=== PATIENT | female | born 1930 | race Caucasian/White ===

== ENCOUNTER 2019-01-20 13:26 | Inpatient (IN) | payer MEDICARE, OTHER ==
[2019-01-20] MEDS ORDERED: Tranexamic Acid 1,000 MG/10 ML VIAL ONE ×2 (15:41→17:25)
[2019-01-20 16:06] LABS: Hemoglobin 4.5 g/dL (12.0-16.0)
[2019-01-20] MEDS ORDERED: Pantoprazole 40 MG VIAL ONE (16:10)
[2019-01-20] MEDS ORDERED: Ondansetron ODT 4 MG TAB PO PRN (16:41)
[2019-01-20] MEDS ORDERED: Ondansetron PF 4 MG/2 ML Vial IVP PRN (16:41)
[2019-01-20] MEDS ORDERED: Labetalol HCl 100 MG/20 ML VIAL SLOW IVP PRN (16:55)
[2019-01-20] MEDS ORDERED: hydrALAZINE 20 MG/ML VIAL SLOW IVP PRN (16:55)
[2019-01-20] MEDS ORDERED: diphenhydrAMINE 25 MG CAP PO PRN (16:55)
--- NOTE | 2019-01-20 17:15 | RAD ---
RADIOGRAPH CHEST 1 VIEW: DATE: 01/20/2019 HISTORY: 88-year-old female with generalized weakness. FINDINGS: There are no airspace densities, pulmonary edema, pneumothorax, or cardiomegaly. The lateral costophr enic angles are sharp. Diffuse prominent interstitial markings which appear chronic. IMPRESSION: 1. No acute cardiopulmonary findings. 2. Chronic diffuse interstitial changes.
[2019-01-20] MEDS ORDERED: Potassium Chloride 20 MEQ TAB PO SCH (17:45)
--- NOTE | 2019-01-20 19:18 | HP ---
CHIEF COMPLAINT: 3-day history of diarrhea, black stool, and weakness. HISTORY OF PRESENT ILLNESS: Ms. Trujillo is a very pleasant 88-year-old female with no significant past medical history, who presented to the emergency department today with the above complaints. She states that on Saturday, approximately 3 days prior to her arrival, she began having some diarrhea, and did notice that her stools were quite black. She takes an [id number]-lnaptln iron supplement from time to time and had been taking this, and so believed that her black stools were secondary to her iron supplementation. She continued to feel worse with some progressive weakness, and so presented to the emergency department today for further treatment. The patient denies any chest pain or shortness of breath. She has had no dizziness. She has had no syncope. The patient lives in [place] and so presented to the [place] ER initially. Hemoglobin on arrival was noted to be 5. Her hematocrit was 13.3%. She was transferred to our facility for higher level of care. On arrival to our facility, the patient's blood pressures have been stable. She has been mildly tachycardic in the 90s to 100s. Repeat lab work showed hemoglobin of 4.5. Her EKG showed sinus tachycardia. Her other lab work was largely unremarkable aside from a mildly low potassium of 3.3. Hospitalist Service has been consulted for admission and further treatment. REVIEW OF SYSTEMS: 12-point review of systems performed and is negative except that stated above. As mentioned, the patient has denied any specific cardiac symptoms. She has had no recent illnesses, fever, or chills. She has been in her usual state of health up until 3 days ago. ALLERGIES: THE PATIENT REPORTS SOME TYPE OF REACTION TO TYLENOL, ALTHOUGH SHE CANNOT RECALL EXACTLY WHAT THAT WAS. HOME MEDICATIONS: Levothyroxine 88 mcg daily. PAST MEDICAL HISTORY: Hypothyroidism. Her PCP is Dr. Patel. PAST SURGICAL HISTORY: The patient reports no surgical histories. She has never had a colonoscopy. She has never been hospitalized for any reason. FAMILY HISTORY: Negative for heart disease, stroke, or diabetes. She states that her parents lived well into their 90s. CODE STATUS: Full code. This was discussed with the patient and her daughter who is at the bedside. SOCIAL HISTORY: The patient is a nonsmoker and nondrinker. There is no illicit drug use. She lives independently in [place] and is a . She has 3 grown living children. She performs all of her home duties and all of her own ADLs. The patient is very functional for her age. PHYSICAL EXAMINATION: VITAL SIGNS: Blood pressure is 120/57, pulse is 94, respirations 18, O2 saturation is 95% on room air. GENERAL: The patient is an elderly female who does appear younger than her stated age, resting comfortably in bed in the ER, in no acute distress. HEENT: Head is atraumatic and normocephalic. Mucous membranes are moist. Positive for conjunctival pallor. NECK: Trachea is midline. No lymphadenopathy. CV: S1 and S2. Mildly tachycardic. Regular rhythm. LUNGS: Regular respiratory rate and pattern. Clear to auscultation bilaterally. ABDOMEN: Positive bowel sounds. Soft, nontender. EXTREMITIES: No edema. SKIN: Warm and dry. LABORATORY DATA: White blood cell count 8, RBC 1.67, hemoglobin 4.5, hematocrit 13.3%, platelets 241. Sodium 141, potassium 3.3, chloride 112, carbon dioxide 19, anion gap 13, BUN is 26, creatinine 0.79, calcium is 8.4, albumin is 3.7. ASSESSMENT: 1. Anemia, hemoglobin 4.5 at presentation, secondary to upper GI bleed/melena. 2. Mild hypokalemia. 3. Hypothyroidism. PLAN: The patient will be admitted to the IMCU for close monitoring. The patient is currently receiving 2 units of PRBC, we will continue to transfuse to keep hemoglobin above 7. Clear liquid diet for now, and n.p.o. after midnight. We will consult GI. The patient has been given 80 mg of IV Protonix in the ER, and I will continue Protonix drip. Further recommendations based on hospital course. Job ID: [id number] [facility]
[2019-01-20 20:21] LABS: Hemoglobin 6.1 g/dL (12.0-16.0)
[2019-01-20 22:51] VITALS: BMI 22.6
[2019-01-21] MEDS: Pantoprazole 80 MG in Sodium Chloride 0.9% 100 ML IVP SCH ×2 (03:15→18:28)
[2019-01-21] MEDS: Levothyroxine Sodium 88 MCG TAB PO SCH (05:56)
[2019-01-21 06:28] LABS: #Eosinphils 0.1 thou/uL (0.0-0.7); #Lymphocytes 1.7 thou/uL (1.20-3.40); #Neutrophils 6.6 thou/uL (1.40-6.50); %Basophils 0.5 % (0.0-1.0); %Eosinophils 0.5 % (0.0-10.0); %Lymphocytes 18.4 % (21.0-51.0); %Monocytes 10.6 % (0.0-10.0); Hemoglobin 7.6 g/dL (12.0-16.0); Mean Corpuscular HGB CONC 34.7 g/dL (32.0-36.0); Mean Corpuscular Hemoglobin 31.3 pg (27.0-31.0); Mean Corpuscular Volume 90.4 fL (78.0-98.0); Mean Platelet Volume 7.9 fL (7.4-10.4); Platelet Count 231 thou/uL (130-400); RBC Distribution Width 14.1 % (11.5-14.5); Red Blood Cell (RBC) Count 2.41 mill/uL (4.20-5.40); White Blood Cell (WBC) Count 9.4 thou/uL (4.8-10.8)
[2019-01-21 06:52] LABS: ALT (SGPT) 15 U/L (8-55); AST (SGOT) 24 U/L (5-34); Albumin 3.3 g/dL (3.4-4.8); Alkaline Phosphatase 48 U/L (40-150); Anion Gap 10 mmol/L (10-20); BUN (Urea Nitrogen) 17 mg/dL (9.8-20.1); Bilirubin, Total 0.9 mg/dL (0.2-1.2); Calc. Creatinine Clearance 66 mL/min (70-130); Calcium 7.9 mg/dL (7.8-10.44); Carbon Dioxide 18 mmol/L (23-31); Chloride 114 mmol/L (98-107); Estimated GFR-MDRD 86; Globulin 1.9 g/dL (2.4-3.5); Glucose 100 mg/dL (83-110); Potassium 3.5 mmol/L (3.5-5.1); Protein, Total 5.2 g/dL (6.0-8.3); Sodium 138 mmol/L (136-145)
--- NOTE | 2019-01-21 07:43 | PDOC.HOSPP ---
- Subjective Encounter Date: 01/21/19 Encounter Time: 07:41 Subjective: alert, bright. feels well now. still having melena to maroon stools - Objective Vital Signs & Weight: Vital Signs (12 hours) Temp Pulse Ox 01/21/19 07:23 98.3 F 01/21/19 03:34 99.2 F 01/21/19 02:27 98 01/21/19 00:00 97.6 F 01/20/19 20:04 98.3 F Weight Weight 148 lb 8 oz Most Recent Monitor Data Heart Rate from ECG 82 NIBP 118/48 NIBP BP-Mean 71 Respiration from ECG 18 SpO2 98 I&O: 01/20/19 01/21/19 01/22/19 06:59 06:59 06:59 Intake Total 470 Balance 470 Result Diagrams: 01/21/19 05:49 01/21/19 05:49 Hospitalist ROS - Medication Medications: Active Medications Generic Name Dose Route Start Last Admin Trade Name Freq PRN Reason Stop Dose Admin Pantoprazole Sodium 80 mg/ 100 mls @ 10 mls/hr 01/20/19 17:00 01/21/19 03:15 Sodium Chloride IVP 100 mls INF SAMIR Administration Levothyroxine Sodium 88 mcg 01/21/19 06:00 01/21/19 05:56 Synthroid PO Not Given 0600 SAMIR - Exam General Appearance: awake alert Neck: no JVD Heart: RRR, no murmur Respiratory: CTAB Gastrointestinal: soft, non-tender, normal bowel sounds Extremities: no edema Hosp A/P (1) Anemia due to blood loss, acute Code(s): D62 - ACUTE POSTHEMORRHAGIC ANEMIA Status: Acute (2) GI hemorrhage Code(s): K92.2 - GASTROINTESTINAL HEMORRHAGE, UNSPECIFIED Status: Acute Qualifiers: GI bleed type/associated pathology: unspecified gastrointestinal hemorrhage type Qualified Code(s): K92.2 - Gastrointestinal hemorrhage, unspecified (3) Hypothyroid Code(s): E03.9 - HYPOTHYROIDISM, UNSPECIFIED Status: Acute Qualifiers: Hypothyroidism type: unspecified Qualified Code(s): E03.9 - Hypothyroidism , unspecified (4) Hypokalemia Code(s): E87.6 - HYPOKALEMIA Status: Acute - Plan iv protonix serial H&H, transfuse for Hg < 7 GI consult
[2019-01-21] MEDS ORDERED: PROPOFOL 200 MG/20 ML VIAL ONE (12:26)
[2019-01-21] MEDS ORDERED: Lidocaine 1% PF 5 ML VIAL ONE (12:26)
[2019-01-21 13:25] LABS: Hemoglobin 6.8 g/dL (12.0-16.0); Platelet Count 216 thou/uL (130-400)
[2019-01-21] MEDS: GoLYTELY 4,000 ml Bottle PO SCH (17:36)
[2019-01-21 18:27] LABS: Hemoglobin 6.8 g/dL (12.0-16.0); Platelet Count 208 thou/uL (130-400)
[2019-01-21 23:49] LABS: Hemoglobin 6.9 g/dL (12.0-16.0); Platelet Count 227 thou/uL (130-400)
[2019-01-22] MEDS: Pantoprazole 80 MG in Sodium Chloride 0.9% 100 ML IVP SCH (03:43)
[2019-01-22] MEDS: GoLYTELY 4,000 ml Bottle PO SCH (05:55)
[2019-01-22] MEDS: Levothyroxine Sodium 88 MCG TAB PO SCH (05:57)
[2019-01-22 06:05] LABS: Hemoglobin 6.1 g/dL (12.0-16.0); Platelet Count 198 thou/uL (130-400)
--- NOTE | 2019-01-22 07:40 | CON ---
DATE OF CONSULTATION: 01/21/2019 REASON FOR CONSULTATION: GI bleeding, severe anemia due to blood loss. HISTORY OF PRESENT ILLNESS: Ms. Alla Trujillo is a very pleasant 88-year-old female, who is very healthy lady except for history of hypothyroidism. She had seen Dr. Wallace before and she has not seen Dr. Patel in a while. She has been seeing Dr. Roach, her novelties sales representative over the years. She has had blood test done at Dr. Roach's office. The patient does take iron off and on. The patient noticed black tarry stool this past Saturday, she was having multiple stools. She had abdominal pain. No nausea, no vomiting. She had no indigestion or heartburn. No other significant problems except for this hypothyroidism. She had never been hospitalized. She does not take any aspirin or any NSAID medication. The patient progressively got weak and also lightheaded. She went to [facility] and was found to have profound anemia. The hemoglobin was as low as 5 g. The MCV is normal. It was indicative of an active blood loss. She was transferred here , and here another CBC done, which shows 4.6 g. She has been transfused. This morning, her hemoglobin is up to 7.6, hematocrit 28.8, MCV is normal at 90.4, indicating acute blood loss. The patient has no similar episodes in the past. Her bowel movements are fairly regular. She never had any rectal bleeding. She never had a colonoscopy. The patient has no other relevant symptoms. ALLERGIES: HISTORY OF INTOLERANCE TO TYLENOL. SOCIAL HISTORY: The patient does not smoke or drink alcohol. MEDICAL ILLNESS: Hypothyroidism, on Synthroid. Her regular novelties sales representative is Dr. Roach. PAST SURGICAL HISTORY: None. FAMILY HISTORY: Unremarkable. No family history of any gastric cancer, heart disease, diabetes, or stroke. MEDICATIONS AT HOME: Synthroid 88 mcg once a day. REVIEW OF SYSTEMS: A 10-point review of systems reviewed; CONSTITUTIONAL: No history of any weight loss. No fever. Her exercise tolerance is very good. HEENT: No chronic headache. No history of any dizziness. No syncope. No impaired vision or diplopia. No hearing loss. No nose bleed. No sore throat. NECK: No stiffness or pain. LUNGS: No chronic coughing, hemoptysis, or dyspnea. CARDIOVASCULAR SYSTEM: No chest pain. No dyspnea, palpitation, orthopnea, or PND. GI: No abdominal pain, nausea, or vomiting. No dysphagia or odynophagia. History of tarry stool over the last 3 days. , neuroendocrine, hematological, neuropsychiatry are unremarkable. PHYSICAL EXAMINATION: GENERAL: She is a very fragile looking thin female, appears very comfortable. She is very pleasant to talk to and is a good historian. VITAL SIGNS: Afebrile. Pulse is 82, blood pressure is 118/48. HEENT: Conjunctivae are clear. NECK: Supple. No adenitis or thyromegaly noted. CARDIOVASCULAR SYSTEM: First and second heart sounds are normal. LUNGS: Clear to auscultation. ABDOMEN: Soft. Abdomen is nontender. No organomegaly. No masses. Bowel sounds normal. EXTREMITIES: Reveal no edema. LABORATORY DATA: On admission; hemoglobin 4.5, hematocrit 13.3. After transfusion, up to 8gr hemoglobin and hematocrit ___, MCV 90.4, platelet count is 231,000, polymorphs 70, lymphocytes 18, monocytes 10. Chemistry profile shows normal lytes, BUN is 17, creatinine 0.65, glucose 100, calcium 7.9, bilirubin 0.9, AST is 24, ALT 15, her albumin is 3.3. CLINICAL IMPRESSION: 1. An 88-year-old female with acute blood loss anemia. The patient has history of black tarry stool over the last 3 days. This history is suggestive of acute upper gastrointestinal bleeding. However, her BUN is normal at 17. However, I would expect to have the BUN going up with upper gastrointestinal bleeding. 2. Hypothyroidism. 3. Gastrointestinal bleeding. 4. Anemia due to blood loss. RECOMMENDATIONS: 1. N.p.o. 2. Follow the hemoglobin and hematocrit. 3. Transfuse p.r.n. 4. Empiric PPI. 5. EGD later on today and if negative, have to consider colonoscopy. Job ID: [id number] [facility]
--- NOTE | 2019-01-22 07:48 | CON ---
DATE OF CONSULTATION: HISTORY OF PRESENT ILLNESS: Alla Trujillo is an 88-year-old female, lives in [place], assisted living. She has been blessed with good health all of her life. She was having melena on presentation and scheduled for endoscopy. She had a hemoglobin just over 4 g. PAST MEDICAL HISTORY: Positive for hypothyroidism. SOCIAL HISTORY: Drinker. FAMILY HISTORY: Father lived to . PHYSICAL EXAMINATION: GENERAL: She is in acute distress. VITAL SIGNS: Blood pressure 122/62, heart rate 82, respiratory rate 18. HEENT negative LUNGS: Clear. HEART: Regular rhythm. ABDOMEN: Without clubbing, cyanosis or edema. LABORATORY DATA: Hemoglobin less than 5 grams. Coagulation studies nl; sodium 138, potassium 3.5, chloride 114, bicarb 18, BUN 17, creatinine 0.65. IMPRESSION: 1. Likely upper gastrointestinal bleed. 2. Hypoglobulinemia. 3. Hyperchloremic acidosis likely secondary to volume infusions. Follow her electrolytes, follow her H/H. . Job ID: [id number] [facility]
--- NOTE | 2019-01-22 09:03 | PDOC.HOSPP ---
- Subjective Encounter Date: 01/22/19 Encounter Time: 09:01 Subjective: alert, no complaaints, prep for colonoscopy in progress - Objective Vital Signs & Weight: Vital Signs (12 hours) Temp Pulse Ox 01/22/19 08:00 98 01/22/19 07:31 98.0 F 01/22/19 03:54 98.8 F 01/21/19 23:38 97.7 F Weight Weight 148 lb 8 oz Most Recent Monitor Data Heart Rate from ECG 88 NIBP 96/72 NIBP BP-Mean 80 Respiration from ECG 20 SpO2 100 I&O: 01/21/19 01/22/19 01/23/19 06:59 06:59 06:59 Intake Total 470 2205 Output Total 1700 Balance 470 505 Result Diagrams: 01/22/19 05:56 01/21/19 05:49 Hospitalist ROS - Medication Medications: Active Medications Generic Name Dose Route Start Last Admin Trade Name Freq PRN Reason Stop Dose Admin Pantoprazole Sodium 80 mg/ 100 mls @ 10 mls/hr 01/20/19 17:00 01/22/19 03:43 Sodium Chloride IVP 100 mls INF SAMIR Administration Levothyroxine Sodium 88 mcg 01/21/19 06:00 01/22/19 05:57 Synthroid PO 88 mcg 0600 SAMIR Administration - Exam Neck: no JVD Heart: RRR, no murmur Respiratory: CTAB Gastrointestinal: soft, normal bowel sounds Extremities: no edema Hosp A/P (1) Anemia due to blood loss, acute Code(s): D62 - ACUTE POSTHEMORRHAGIC ANEMIA Status: Acute (2) GI hemorrhage Code(s): K92.2 - GASTROINTESTINAL HEMORRHAGE, UNSPECIFIED Status: Acute Qualifiers: GI bleed type/associated pathology: unspecified gastrointestinal hemorrhage type Qualified Code(s): K92.2 - Gastrointestinal hemorrhage, unspecified (3) Hypothyroid Code(s): E03.9 - HYPOTHYROIDISM, UNSPECIFIED Status: Acute Qualifiers: Hypothyroidism type: unspecified Qualified Code(s): E03.9 - Hypothyroidism , unspecified (4) Hypokalemia Code(s): E87.6 - HYPOKALEMIA Status: Acute - Plan iv protonix serial H&H, transfuse for Hg < 7 EGD unremarkable, colonoscopy pending
--- NOTE | 2019-01-22 09:23 | OP ---
DATE OF PROCEDURE: 01/21/2019 PROCEDURE PERFORMED: Esophagogastroduodenoscopy. PREOPERATIVE DIAGNOSES: An 88-year-old female with black tarry stool over the last 3 days with severe anemia. The patient has no abdominal pain, no nausea or vomiting. She does not take any aspirin or any NSAID medication. Underwent EGD. POSTOPERATIVE DIAGNOSES: 1. Mild mucosal friability at the GE junction. 2. Hiatal hernia. 3. Polyps in the duodenum, which appears benign and was not biopsied 4. Normal duodenum. 5. Endoscopy the stomach is completely empty. Does not have any blood or any coffee-ground material. DESCRIPTION OF PROCEDURE: The patient was placed on her left lateral position and was given sedation by Anesthesia Department. A Pentax video gastroscope under direct vision passed down the oropharynx, past the GE junction into the stomach and subsequently into the descending duodenum. The esophageal mucosa appears normal throughout. The GE junction showed no patholgy.. Retroflexion failed to show any pathology in fundus or cardia. She has hiatal hernia. The gastric body, gastric antrum, incisura angularis, no lesion seen. The duodenal bulb shows multiple tiny polyps .They appear benign. In the descending duodenum, no pathology seen. The scope was advanced back one more time into the descending duodenal system. Again, careful withdrawal shows no abnormal findings. The stomach decompressed and scope removed. RECOMMENDATIONS: 1. Clear liquid diet. 2. Prep the patient for colonoscopy tomorrow, which will be done by Dr. Reece Figueroa. This was conveyed to the patient's daughter, Elisha. Job ID: [id number] [facility]
--- NOTE | 2019-01-22 12:15 | PRG ---
DATE OF SERVICE: 01/22/2019 SUBJECTIVE: [place]. She underwent endoscopy with Dr. Headley yesterday. She had GE junction mucosal friability, polyps in the duodenum. No ulcer, no fresh blood or old blood was seen in the stomach. She is tentatively on the schedule for colonoscopy. Her hemoglobin is 6.1, so I have ordered 2 units of blood. OBJECTIVE: LUNGS: Clear. HEART: Regular rhythm. ABDOMEN: Soft. IMPRESSION: Gastrointestinal blood loss, probably subacute given that she presented with a hemoglobin of 4 g. We will continue to follow. Medically, she appears stable at this time. Job ID: [id number] [facility]
[2019-01-22 13:04] VITALS: BP 120/49
--- NOTE | 2019-01-22 19:13 | OP ---
DATE OF PROCEDURE: 01/22/2019 PROCEDURES PERFORMED: Colonoscopy with snare polypectomy and control of hemorrhage and biopsy. PREOPERATIVE DIAGNOSES: Gastrointestinal bleed and anemia of acute blood loss. DESCRIPTION OF PROCEDURE: Informed consent was obtained from the patient. She was sedated with total intravenous anesthesia. The rectal exam was performed and the colonoscope was advanced easily to the terminal ileum. The preparation quality was good. The mucosa of the terminal ileum was normal. The ileocecal valve and appendiceal orifice were clearly identified. There was red blood scattered throughout the colon. When the scope entered the ascending colon, there was a large area of adherent red blood on the wall of the colon. I initially thought this was barotrauma; however, after this was washed and suctioned, it became apparent that this was a large confluence of vascular ectasias. This extended from the ascending colon to partially into the cecum. This was circumferential about 1/2 to 3/4th of the circumference of the proximal ascending colon. There was one particular site that had continuous persistent active bleeding. This was cauterized with about a 1 cm diameter area with argon plasma coagulation with excellent control of the hemorrhage. There was no further bleeding or accumulation of blood after the site was treated. There was a large flat villous appearing polyp about 7 cm distal to the ileocecal valve and the distal ascending colon. This measures around 18 mm, however, all the margins of the polyp could not be adequately visualized in forward or retroflexed views in the right colon. This was biopsied. There was mild to moderate diverticulosis of the left colon. A 7 mm polyp was removed by snare cautery polypectomy from the distal sigmoid colon. Two polyps measuring 1 cm and 6 mm were removed from the rectum by snare cautery polypectomy. Retroflexed views in the rectum were normal. IMPRESSION: 1. 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 There was one actively persistently bleeding site that was cauterized with argon plasma coagulation in the right colon, settings at 15 and then 20 gibbs with good hemostasis confirmed. This confluence of vascular ectasias is really too extensive to cauterize completely. The bleeding in this site was stopped and further empiric cauterization of this was not performed today. 2. Large flat villous appearing polyp at 18 mm in the distal ascending colon, about 7 cm distal to the ileocecal valve. The margins of this polyp could not be fully visualized in forward or retroflexed views in the ascending colon. This was biopsied. 3. Mild to moderate left-sided diverticulosis. 4. 7 mm distal sigmoid polyp removed by hot snare. 5. Two rectal polyps measuring 1 cm and 6 mm were removed by hot snare. RECOMMENDATIONS: 1. Await histopathology. 2. Follow up in the office with Dr. Headley. If the patient has ongoing or recurrent chronic bleeding, then options would include right hemicolectomy or further argon plasma coagulation. For now, both these options I would think may have more potential morbidity than benefit and now that the actively bleeding site is controlled, I would let the clinical course determine the next step. 3. If the polyp in the ascending colon has no high grade dysplasia, then again I would consider just conservative management and rebiopsy in a year. We would have to weigh risks of more extensive polypectomy versus right hemicolectomy given her advanced age. She is in good health and active otherwise. 4. Follow trend of her hemoglobin now and follow for signs of further overt bleeding. If her hemoglobin remains stable and there is no further bleeding, then I would expect she should be able to discharge home the day after tomorrow. We will advance her diet today. Job ID: [id number]
[2019-01-23] MEDS: Levothyroxine Sodium 88 MCG TAB PO SCH (05:03)
[2019-01-23 05:51] LABS: #Eosinphils 0.2 thou/uL (0.0-0.7); #Lymphocytes 1.5 thou/uL (1.20-3.40); #Neutrophils 9.1 thou/uL (1.40-6.50); %Basophils 0.1 % (0.0-1.0); %Eosinophils 1.3 % (0.0-10.0); %Monocytes 8.7 % (0.0-10.0); %Neutrophils 76.8 % (42.0-75.0); Mean Corpuscular HGB CONC 33.5 g/dL (32.0-36.0); Mean Corpuscular Hemoglobin 30.5 pg (27.0-31.0); Mean Corpuscular Volume 90.9 fL (78.0-98.0); Mean Platelet Volume 8.2 fL (7.4-10.4); Platelet Count 184 thou/uL (130-400); RBC Distribution Width 14.2 % (11.5-14.5); Red Blood Cell (RBC) Count 2.63 mill/uL (4.20-5.40); White Blood Cell (WBC) Count 11.8 thou/uL (4.8-10.8)
[2019-01-23 11:07] VITALS: TEMP 97.6
--- NOTE | 2019-01-23 14:28 | PRG ---
DATE OF SERVICE: 01/23/2019 SUBJECTIVE: This is an 88-year-old hospitalized with GI bleeding, profound anemia. She has been transfused. She had negative EGD. Her colonoscopy revealed multiple confluent areas of malformation of the right colon and one of them was bleeding. This was cauterized by Dr. Bradford. The other right colon polyps were biopsied. She has done well overnight. She was started on clear, full liquid or regular diet today. She is tolerating diet. No abdominal pain. No nausea or vomiting. She had a stool today, and the stool is normal in color. Blood count is up to 8 and stable. PHYSICAL EXAMINATION: GENERAL: Appears comfortable. VITAL SIGNS: Stable. CARDIOVASCULAR: Lungs within normal limits. ABDOMEN: Soft. No organomegaly. No tenderness. No masses. RECOMMENDATION: The patient can be discharged home on iron supplement. She will come back to see me in 2 weeks. I did talk to Dr. Castro, who is a hospitalist on-call today. Dr. Castro will discharge the patient later on today. Job ID: [id number]
--- NOTE | 2019-01-24 03:22 | DIS ---
DATE OF ADMISSION: 01/20/2019 DATE OF DISCHARGE: 01/23/2019 REASON FOR HOSPITALIZATION: GI bleeding. SIGNIFICANT FINDINGS: The patient was found to have complex collection of blood vessels on the ascending colon, which were actively bleeding. I required electrocauterization with argon plasma, please see full operative report for details. PROCEDURES PERFORMED/TREATMENTS RENDERED: The patient received colonoscopy on 01/22/2019, please see full operative report for details. The patient was transfused packed red blood cells resulting in hemoglobin increasing to a level of 8.0 on the day of discharge. Hemoglobin as low as 4.5 on admission. CONDITION ON DISCHARGE: Stable. SPECIFIC INSTRUCTIONS FOR THE PATIENT/FAMILY: 1. The patient is recommended to return to acute care hospital immediately if there is any sign of black or red in her stool. 2. The patient is recommended to return to acute care hospital for worsening abdominal pain or any other new symptoms. 3. The patient is recommended to follow up with Gastroenterology in the outpatient clinic in the next 1 to 2 weeks. The patient is recommended to follow up with primary care physician in the next 5 to 7 days. 4. The patient is recommended to take all medications as directed, to be re-evaluated by primary care physician and Gastroenterology in the outpatient clinic. DISCHARGE MEDICATIONS: 1. Levothyroxine 88 mcg one tablet p.o. daily. 2. Ferrous sulfate 325 mg one tablet p.o. daily. HOSPITAL COURSE: Ms. Trujillo is a very pleasant 88-year-old white female who presented to the [facility] on 01/20/2019, with GI bleeding. Patient initially found to have hemoglobin as low as 4.5 and required blood transfusions, please see full record from blood bank for details. Patient seen and evaluated by Gastroenterology, please see full consultation progress notes and operative reports for details. Gastroenterology recommending colonoscopy which was performed on 01/22/2019, please see full operative report for details. The patient was found to have a complex vascular collection on the proximal ascending colon and there was active bleeding. The patient had successful argon cauterization and bleeding was controlled. The patient also with polyps that will need close monitoring per Gastroenterology in the upcoming weeks. The patient was recommended safe for discharge by Gastroenterology on 01/23/2019. The patient tolerating regular diet. The patient had a bowel movement, which did not have any black or blood in stool. The patient is breathing well on room air. The patient's vital signs are stable. The patient recommended safe for discharge with close followup in the outpatient setting. The patient recommended starting oral iron per Gastroenterology, this medication was sent to her preferred pharmacy. The patient recommended to return to acute care hospital immediately if there is any signs or symptoms including, but not limited to, red or black in stool, abdominal pain, lightheadedness, dizziness, or any other new symptoms. The patient recommended to follow up with primary care physician and Gastroenterology in the next 1 to 2 weeks. The patient recommended to continue to follow up with all other specialists as directed. Greater than 37 minutes spent coordinating care and discharge process for this patient. Job ID: [id number]
== END 2019-01-23 15:24 | disposition home or self-care (01) | DRG 378 ==
LOC: ERS 13:26 → IMCU/EMU 19:56
PROVIDERS: ADMIT Internal Medicine; ATTEND Internal Medicine
PROC: 0DJ08ZZ Inspection of Upper Intestinal Tract, Via Natural or Artificial Opening Endoscopic (ICD-10-PCS; principal; 2019-01-21)
PROC: 0W3P8ZZ Control Bleeding in Gastrointestinal Tract, Via Natural or Artificial Opening Endoscopic (ICD-10-PCS; 2019-01-22)
PROC: 0DBK8ZX Excision of Ascending Colon, Via Natural or Artificial Opening Endoscopic, Diagnostic (ICD-10-PCS; 2019-01-22)
PROC: 0DBP8ZZ Excision of Rectum, Via Natural or Artificial Opening Endoscopic (ICD-10-PCS; 2019-01-22)
PROC: 0DBN8ZZ Excision of Sigmoid Colon, Via Natural or Artificial Opening Endoscopic (ICD-10-PCS; 2019-01-22)
DX: K31.811 Angiodysplasia of stomach and duodenum with bleeding (principal); D62 Acute posthemorrhagic anemia; E87.2 Acidosis; E86.1 Hypovolemia; E03.9 Hypothyroidism, unspecified; E87.6 Hypokalemia; K44.9 Diaphragmatic hernia without obstruction or gangrene; K62.1 Rectal polyp; K63.5 Polyp of colon; K31.7 Polyp of stomach and duodenum; K57.30 Diverticulosis of large intestine without perforation or abscess without bleeding
CPT/HCPCS: 36415; 36430; 71045; 80053; 82274; 85014; 85018; 85025; 85049; 86850; 86900; 86901; 88305; 96374; 96376; C9113; J2001; J2704; J3490; P9016

== ENCOUNTER 2021-06-22 18:24 | Inpatient (IN) | payer MEDICARE, OTHER ==
[2021-06-22 18:52] LABS: #Lymphocytes 1.2 thou/uL (1.20-3.40); #Neutrophils 8.4 thou/uL (1.40-6.50); %Basophils 0.1 % (0.0-1.0); %Eosinophils 0.1 % (0.0-10.0); %Lymphocytes 11.5 % (21.0-51.0); %Monocytes 9.6 % (0.0-10.0); %Neutrophils 78.7 % (42.0-75.0); Hemoglobin 9.8 g/dL (12.0-16.0); Mean Corpuscular HGB CONC 32.3 g/dL (32.0-36.0); Mean Corpuscular Hemoglobin 32.7 pg (27.0-31.0); Mean Platelet Volume 7.3 fL (7.4-10.4); Platelet Count 423 thou/uL (130-400); RBC Distribution Width 13.1 % (11.5-14.5); Red Blood Cell (RBC) Count 2.99 mill/uL (4.20-5.40); White Blood Cell (WBC) Count 10.6 thou/uL (4.8-10.8)
[2021-06-22 19:03] LABS: Bacteria/HPF None Seen HPF (None Seen); Bilirubin Negative (Negative); Blood, Urine 1+ (Negative); Clarity Clear (Clear); Glucose, Urine (Dipstick) Normal (Negative); Ketone, Urine Negative (Negative); Leukocyte Negative Leu/uL (Negative); Nitrite Negative (Negative); Protein, Urine (Dipstick) 30 mg/dL (Neg-Trace); RBC/HPF 0-3 HPF (0-3); Specific Gravity, Urine 1.025 (1.002-1.036); Squamous Epithelial None Seen HPF (0-3); Urobilinogen Normal mg/dL (Less than 2); WBC/HPF 0-3 HPF (0-3); pH, Urine 5.5 (5.0-9.0)
[2021-06-22 19:06] LABS: INR-International Normal Ratio 1.4; Prothrombin Time 17.2 sec (12.0-14.7)
[2021-06-22 19:08] LABS: PTT 63.8 sec (22.9-36.1)
[2021-06-22] MEDS ORDERED: cefTRIAXone\\ROCEPHIN 2 GM VIAL ONE (19:30)
[2021-06-22 19:54] LABS: CKMB 8.7 ng/mL (0-6.6)
[2021-06-22 20:14] LABS: Albumin 3.1 g/dL (3.4-4.8)
[2021-06-22 20:16] LABS: Calcium 7.7 mg/dL (7.8-10.44); Potassium 3.2 mmol/L (3.5-5.1)
[2021-06-22 20:17] LABS: Globulin 2.5 g/dL (2.4-3.5); Glucose 115 mg/dL (83-110); Protein, Total 5.6 g/dL (5.8-8.1)
[2021-06-22 20:18] LABS: Anion Gap 17 mmol/L (10-20); Carbon Dioxide 20 mmol/L (23-31)
[2021-06-22 20:19] LABS: Bilirubin, Total 0.7 mg/dL (0.2-1.2)
[2021-06-22 20:20] LABS: Alkaline Phosphatase 48 U/L (40-110); Calc. Creatinine Clearance 0 mL/min (70-130)
[2021-06-22] MEDS ORDERED: Azithromycin 500 MG VIAL ONE (20:20)
[2021-06-22 20:21] LABS: BUN (Urea Nitrogen) 59 mg/dL (9.8-20.1)
[2021-06-22 20:22] LABS: AST (SGOT) 29 U/L (5-34)
[2021-06-22 20:23] LABS: ALT (SGPT) 20 U/L (8-55)
[2021-06-22 20:24] LABS: Chloride 130 mmol/L (98-107); Sodium 164 mmol/L (136-145)
[2021-06-22] MEDS ORDERED: Ondansetron PF 4 MG/2 ML Vial IVP PRN (20:48)
[2021-06-22] MEDS ORDERED: hydrALAZINE 20 MG/ML VIAL SLOW IVP PRN (20:53)
[2021-06-22] MEDS ORDERED: Dextrose 5% w/ 20 mEq KCl 1,000 ML IV SCH (21:00)
[2021-06-22] MEDS ORDERED: Pantoprazole 80 MG in Sodium Chloride 0.9% 100 ML IVPB SCH (21:00)
[2021-06-22 21:49] LABS: Hemoglobin 8.7 g/dL (12.0-16.0)
[2021-06-22] MEDS ORDERED: Potassium Phosphate 30 MMOL in Sodium Chloride 0.9% 500 ML IVPB SCH (22:00)
[2021-06-22 22:18] LABS: Anion Gap 17 mmol/L (10-20); BUN (Urea Nitrogen) 53 mg/dL (9.8-20.1); Calc. Creatinine Clearance 0 mL/min (70-130); Calcium 7.8 mg/dL (7.8-10.44); Carbon Dioxide 20 mmol/L (23-31); Chloride 129 mmol/L (98-107); Glucose 116 mg/dL (83-110); Potassium 3.1 mmol/L (3.5-5.1); Sodium 163 mmol/L (136-145)
[2021-06-22 22:30] LABS: SARS-CoV-2 NAA Rapid Test DETECTED (NotDetected)
[2021-06-23 01:18] LABS: Hemoglobin 8.6 g/dL (12.0-16.0)
[2021-06-23 01:43] LABS: Troponin I 0.246 ng/mL (< 0.028)
[2021-06-23 06:01] LABS: Troponin I 0.275 ng/mL (< 0.028)
[2021-06-23 06:03] LABS: ALT (SGPT) 25 U/L (8-55); AST (SGOT) 43 U/L (5-34); Alkaline Phosphatase 50 U/L (40-110); Anion Gap 16 mmol/L (10-20); BUN (Urea Nitrogen) 43 mg/dL (9.8-20.1); Bilirubin, Total 0.7 mg/dL (0.2-1.2); Calc. Creatinine Clearance 47 mL/min (70-130); Calcium 7.7 mg/dL (7.8-10.44); Carbon Dioxide 19 mmol/L (23-31); Chloride 132 mmol/L (98-107); Globulin 2.4 g/dL (2.4-3.5); Glucose 109 mg/dL (83-110); Potassium 3.2 mmol/L (3.5-5.1); Protein, Total 5.4 g/dL (5.8-8.1); Sodium 164 mmol/L (136-145)
[2021-06-23] MEDS: Levothyroxine Sodium 88 MCG TAB PO SCH (06:14)
[2021-06-23 06:31] LABS: Hemoglobin 8.4 g/dL (12.0-16.0); Mean Corpuscular HGB CONC 32.9 g/dL (32.0-36.0); Mean Corpuscular Hemoglobin 32.8 pg (27.0-31.0); Mean Corpuscular Volume 99.8 fL (78.0-98.0); Mean Platelet Volume 7.5 fL (7.4-10.4); Platelet Count 314 thou/uL (130-400); RBC Distribution Width 13.1 % (11.5-14.5); Red Blood Cell (RBC) Count 2.56 mill/uL (4.20-5.40); White Blood Cell (WBC) Count 9.4 thou/uL (4.8-10.8)
[2021-06-23 06:35] LABS: Magnesium 2.4 mg/dL (1.6-2.6)
[2021-06-23 08:11] LABS: Phosphorus 4.6 mg/dL (2.3-4.7)
[2021-06-23] MEDS: Dextrose 5% in Water 1,000 ML IV SCH ×3 (09:44→20:20)
[2021-06-23] MEDS ORDERED: Iopamidol 370 76% 100 ML VIAL ONE (10:28)
[2021-06-23 10:40] LABS: CRP (Inflammatory) Less than 0.50 mg/dL (= or < 0.5); Iron 22 ug/dL (50-170); Iron Binding Capacity, Total 226 mcg/dL (265-497)
[2021-06-23 10:44] LABS: Anion Gap 11 mmol/L (10-20); BUN (Urea Nitrogen) 38 mg/dL (9.8-20.1); Calc. Creatinine Clearance 49 mL/min (70-130); Calcium 7.6 mg/dL (7.8-10.44); Carbon Dioxide 25 mmol/L (23-31); Chloride 132 mmol/L (98-107); Glucose 124 mg/dL (83-110); Potassium 3.4 mmol/L (3.5-5.1); Sodium 165 mmol/L (136-145)
[2021-06-23 11:05] LABS: Band 4 % (5-11); Lymphocytes 15 % (21-51); MDiff Complete? YES; Monocytes 5 % (0-10); Neutrophil 76 % (42-75); Platelet Morphology Comment Appears Adequate; Polychromasia MODERATE = 3-4 cells (100X) (0-2/hpf)
[2021-06-23 14:02] LABS: Anion Gap 7 mmol/L (10-20); BUN (Urea Nitrogen) 35 mg/dL (9.8-20.1); Calc. Creatinine Clearance 47 mL/min (70-130); Calcium 7.4 mg/dL (7.8-10.44); Carbon Dioxide 27 mmol/L (23-31); Chloride 131 mmol/L (98-107); Glucose 162 mg/dL (83-110); Potassium 3.2 mmol/L (3.5-5.1); Sodium 162 mmol/L (136-145)
[2021-06-23] MEDS ORDERED: Potassium Bicarbonate/Cit Ac 20 MEQ TAB PO SCH (15:00)
[2021-06-23 16:53] LABS: Anion Gap 6 mmol/L (10-20); BUN (Urea Nitrogen) 31 mg/dL (9.8-20.1); Calc. Creatinine Clearance 52 mL/min (70-130); Calcium 7.6 mg/dL (7.8-10.44); Carbon Dioxide 27 mmol/L (23-31); Glucose 110 mg/dL (83-110); Potassium 3.2 mmol/L (3.5-5.1); Sodium 159 mmol/L (136-145)
[2021-06-23 16:58] LABS: Chloride 129 mmol/L (98-107)
[2021-06-23] MEDS ORDERED: Potassium Citrate 10 MEQ TAB PO SCH (17:00)
[2021-06-23] MEDS ORDERED: ALPRAZolam 0.25 MG TAB PO SCH (18:15)
[2021-06-23 20:37] LABS: Anion Gap 6 mmol/L (10-20); BUN (Urea Nitrogen) 28 mg/dL (9.8-20.1); Calc. Creatinine Clearance 53 mL/min (70-130); Calcium 7.7 mg/dL (7.8-10.44); Carbon Dioxide 28 mmol/L (23-31); Glucose 92 mg/dL (83-110); Potassium 3.2 mmol/L (3.5-5.1); Sodium 160 mmol/L (136-145)
[2021-06-23 20:40] LABS: Chloride 129 mmol/L (98-107)
[2021-06-23] MEDS: Pantoprazole 80 MG, Admixture Fee 1 EACH in Sodium Chloride 0.9% 100 ML IVPB SCH (20:59)
[2021-06-23] MEDS: cefTRIAXone\\ROCEPHIN 1 GM in Sodium Chloride 0.9% 100 ML IVPB SCH (20:59)
[2021-06-23] MEDS: Potassium Citrate 10 MEQ TAB PO SCH (20:59)
[2021-06-24] MEDS: Potassium Citrate 10 MEQ TAB PO SCH ×5 (00:28→20:17)
[2021-06-24] MEDS: Dextrose 5% in Water 1,000 ML IV SCH ×4 (03:13→18:10)
[2021-06-24 03:58] LABS: Potassium, Urine 49.2 mmol/L
[2021-06-24 06:14] LABS: Anion Gap 9 mmol/L (10-20); BUN (Urea Nitrogen) 20 mg/dL (9.8-20.1); Calc. Creatinine Clearance 56 mL/min (70-130); Calcium 7.6 mg/dL (7.8-10.44); Carbon Dioxide 21 mmol/L (23-31); Chloride 125 mmol/L (98-107); Glucose 149 mg/dL (83-110); Sodium 152 mmol/L (136-145)
[2021-06-24 06:16] LABS: Magnesium 2.1 mg/dL (1.6-2.6)
[2021-06-24] MEDS: Levothyroxine Sodium 88 MCG TAB PO SCH (06:16)
[2021-06-24 06:23] LABS: #Eosinphils 0.1 thou/uL (0.0-0.7); #Lymphocytes 1.1 thou/uL (1.20-3.40); #Monocytes 0.6 thou/uL (0.11-0.59); #Neutrophils 7.2 thou/uL (1.40-6.50); %Basophils 0.1 % (0.0-1.0); %Eosinophils 0.9 % (0.0-10.0); %Lymphocytes 11.7 % (21.0-51.0); %Monocytes 6.1 % (0.0-10.0); %Neutrophils 81.1 % (42.0-75.0); Hemoglobin 8.5 g/dL (12.0-16.0); MDiff Complete? YES; Mean Corpuscular HGB CONC 32.5 g/dL (32.0-36.0); Mean Corpuscular Hemoglobin 34.5 pg (27.0-31.0); Mean Platelet Volume 7.6 fL (7.4-10.4); Platelet Count 262 thou/uL (130-400); Platelet Morphology Comment Appears Adequate; Polychromasia SLIGHT = 2-3 cells (100X) (0-2/hpf); RBC Distribution Width 13.9 % (11.5-14.5); Red Blood Cell (RBC) Count 2.45 mill/uL (4.20-5.40); White Blood Cell (WBC) Count 8.9 thou/uL (4.8-10.8)
[2021-06-24] MEDS ORDERED: Potassium Phosphate 30 MMOL in Sodium Chloride 0.9% 250 ML 250 ML IVPB SCH (06:45)
[2021-06-24] MEDS: Enoxaparin Sodium 40 MG/0.4 ML SYRINGE SC SCH (09:28)
[2021-06-24] MEDS: Pantoprazole 80 MG, Admixture Fee 1 EACH in Sodium Chloride 0.9% 100 ML IVPB SCH ×2 (09:29→19:56)
[2021-06-24 15:31] LABS: Phosphorus 3.8 mg/dL (2.3-4.7)
[2021-06-24] MEDS: cefTRIAXone\\ROCEPHIN 1 GM in Sodium Chloride 0.9% 100 ML IVPB SCH (19:55)
[2021-06-25] MEDS: Dextrose 5% in Water 1,000 ML IV SCH ×2 (00:06→05:22)
[2021-06-25 01:08] LABS: Legionella Urinary Ag Negative (Negative); Strep pneumo Urine Ag NEGATIVE (NEGATIVE)
[2021-06-25] MEDS: Levothyroxine Sodium 88 MCG TAB PO SCH (05:42)
[2021-06-25 06:01] LABS: ALT (SGPT) 40 U/L (8-55); AST (SGOT) 43 U/L (5-34); Albumin 2.7 g/dL (3.4-4.8); Alkaline Phosphatase 52 U/L (40-110); Anion Gap 2 mmol/L (10-20); BUN (Urea Nitrogen) 8 mg/dL (9.8-20.1); BUN/Creatinine Ratio 11.76; Bilirubin, Total 0.9 mg/dL (0.2-1.2); CK (CPK) 214 U/L (29-168); Calc. Creatinine Clearance 53 mL/min (70-130); Calcium 7.3 mg/dL (7.8-10.44); Carbon Dioxide 31 mmol/L (23-31); Chloride 112 mmol/L (98-107); Globulin 2.2 g/dL (2.4-3.5); Glucose 147 mg/dL (83-110); Magnesium 1.8 mg/dL (1.6-2.6); Phosphorus 2.3 mg/dL (2.3-4.7); Potassium 2.8 mmol/L (3.5-5.1); Protein, Total 4.9 g/dL (5.8-8.1); Sodium 142 mmol/L (136-145)
[2021-06-25] MEDS: D5 1/4 NS 1,000 ML IV SCH ×3 (06:38→18:09)
[2021-06-25] MEDS ORDERED: Electrolyte Replacement Protocol 1 EACH FS SCH (06:45)
[2021-06-25] MEDS: Potassium Chloride 20 MEQ TAB PO SCH ×2 (08:00→11:15)
[2021-06-25] MEDS ORDERED: Potassium Phosphate 30 MMOL in Sodium Chloride 0.9% 250 ML 250 ML IVPB SCH (08:00)
[2021-06-25] MEDS: Enoxaparin Sodium 40 MG/0.4 ML SYRINGE SC SCH (08:00)
[2021-06-25] MEDS ORDERED: Magnesium 2 GM/50 ML(in water) 2 GM in Premix Bag 1 BAG IVPB SCH (08:00)
[2021-06-25 08:44] LABS: Band 8 % (5-11); Eosinophils 5 % (0-10); Helmet Cells SLIGHT = 2-5 cells (100X) (0-1/hpf); Hemoglobin 8.7 g/dL (12.0-16.0); Lymphocytes 6 % (21-51); MDiff Complete? YES; Macrocytosis SLIGHT = 6-15 cells (100X) (0-5/hpf); Mean Corpuscular Hemoglobin 33.3 pg (27.0-31.0); Mean Platelet Volume 7.8 fL (7.4-10.4); Monocytes 4 % (0-10); Neutrophil 77 % (42-75); Nucleated RBC 1 % (0); Ovalocytes SLIGHT = 2-5 cells (100X) (0-1/hpf); Platelet Count 237 thou/uL (130-400); Platelet Morphology Comment Appears Adequate; Polychromasia MODERATE = 3-4 cells (100X) (0-2/hpf); RBC Distribution Width 13.5 % (11.5-14.5); Red Blood Cell (RBC) Count 2.61 mill/uL (4.20-5.40); Schistocytes SLIGHT = 2-5 cells (100X) (0-1/hpf); Tear Drops SLIGHT = 2-5 cells (100X) (0-1/hpf); White Blood Cell (WBC) Count 9.6 thou/uL (4.8-10.8)
[2021-06-25] MEDS: Pantoprazole 80 MG, Admixture Fee 1 EACH in Sodium Chloride 0.9% 100 ML IVPB SCH (09:33)
[2021-06-25] MEDS ORDERED: Dexamethasone 4 mg/ml Vial SLOW IVP SCH (10:45)
[2021-06-25] MEDS ORDERED: Pantoprazole 40 MG VIAL IVP SCH (10:45)
[2021-06-25] MEDS ORDERED: REMDESIVIR 200 MG in Sodium Chloride 0.9% 250 ML 210 ML IV SCH (12:15)
[2021-06-25] MEDS ORDERED: Sodium Bicarbonate Tab 325 MG TAB PER TUBE PRN (12:45)
[2021-06-25] MEDS ORDERED: Pancrelipase DR 12,000 1 CAP FS PRN (12:45)
[2021-06-25 15:33] LABS: Anion Gap 15 mmol/L (10-20); BUN (Urea Nitrogen) 7 mg/dL (9.8-20.1); Calc. Creatinine Clearance 58 mL/min (70-130); Calcium 7.3 mg/dL (7.8-10.44); Carbon Dioxide 18 mmol/L (23-31); Chloride 113 mmol/L (98-107); Glucose 156 mg/dL (83-110); Potassium 3.9 mmol/L (3.5-5.1); Sodium 142 mmol/L (136-145)
[2021-06-25] MEDS: Tiotropium Bromide 4 GM INHALER IH SCH (15:59)
[2021-06-25] MEDS: cefTRIAXone\\ROCEPHIN 1 GM in Sodium Chloride 0.9% 100 ML IVPB SCH (21:04)
[2021-06-26] MEDS: D5 1/4 NS 1,000 ML IV SCH (02:18)
[2021-06-26 05:14] LABS: #Lymphocytes 0.6 thou/uL (1.20-3.40); #Monocytes 0.8 thou/uL (0.11-0.59); #Neutrophils 6.8 thou/uL (1.40-6.50); %Basophils 0.1 % (0.0-1.0); %Eosinophils 0.5 % (0.0-10.0); %Lymphocytes 7.2 % (21.0-51.0); %Monocytes 9.3 % (0.0-10.0); %Neutrophils 82.9 % (42.0-75.0); Hemoglobin 7.8 g/dL (12.0-16.0); Mean Corpuscular HGB CONC 33.2 g/dL (32.0-36.0); Mean Corpuscular Hemoglobin 33.6 pg (27.0-31.0); Platelet Count 229 thou/uL (130-400); RBC Distribution Width 13.7 % (11.5-14.5); Red Blood Cell (RBC) Count 2.33 mill/uL (4.20-5.40); White Blood Cell (WBC) Count 8.2 thou/uL (4.8-10.8)
[2021-06-26 05:55] LABS: INR-International Normal Ratio 1.4; Prothrombin Time 17.1 sec (12.0-14.7)
[2021-06-26] MEDS: Tiotropium Bromide 4 GM INHALER IH SCH (06:13)
[2021-06-26] MEDS: Levothyroxine Sodium 88 MCG TAB PO SCH (06:13)
[2021-06-26 06:15] LABS: ALT (SGPT) 39 U/L (8-55); AST (SGOT) 28 U/L (5-34); Albumin 2.4 g/dL (3.4-4.8); Alkaline Phosphatase 53 U/L (40-110); Anion Gap 12 mmol/L (10-20); BUN (Urea Nitrogen) 12 mg/dL (9.8-20.1); Bilirubin, Total 0.4 mg/dL (0.2-1.2); Calc. Creatinine Clearance 64 mL/min (70-130); Calcium 7.2 mg/dL (7.8-10.44); Carbon Dioxide 20 mmol/L (23-31); Chloride 111 mmol/L (98-107); Globulin 2.2 g/dL (2.4-3.5); Glucose 159 mg/dL (83-110); Magnesium 2.2 mg/dL (1.6-2.6); Potassium 3.1 mmol/L (3.5-5.1); Protein, Total 4.6 g/dL (5.8-8.1); Sodium 140 mmol/L (136-145)
[2021-06-26] MEDS ORDERED: Sodium Bicarbonate 50 MEQ in Dextrose 5% in Water 1,000 ML IV SCH (06:30)
[2021-06-26] MEDS: Potassium Chloride 20 MEQ in Premix Bag 1 BAG IVPB SCH ×2 (08:05→10:44)
[2021-06-26] MEDS: Enoxaparin Sodium 40 MG/0.4 ML SYRINGE SC SCH (08:06)
[2021-06-26] MEDS: Dexamethasone 4 mg/ml Vial SLOW IVP SCH (08:06)
[2021-06-26] MEDS: Pantoprazole 40 MG VIAL IVP SCH (08:06)
[2021-06-26] MEDS: Ascorbic Acid 500 mg Chewable Tablet PO SCH (08:06)
[2021-06-26] MEDS: Zinc Sulfate 220 MG CAP PO SCH (08:07)
[2021-06-26] MEDS: REMDESIVIR 100 MG in Sodium Chloride 0.9% 250 ML 230 ML IV SCH (10:42)
[2021-06-26] MEDS: Mometasone 200 MCG/Formoterol 5 MCG 120 PUFF INHALER INH SCH ×2 (10:44→16:50)
[2021-06-26] MEDS: Potassium Bicarbonate/Cit Ac 20 MEQ TAB PER TUBE SCH ×2 (11:19→15:02)
[2021-06-26] MEDS: Azithromycin 500 MG in Sodium Chloride 0.9% 250 ML 250 ML IVPB SCH (14:36)
[2021-06-26] MEDS: cefTRIAXone\\ROCEPHIN 1 GM in Sodium Chloride 0.9% 100 ML IVPB SCH (20:10)
[2021-06-27] MEDS: Mometasone 200 MCG/Formoterol 5 MCG 120 PUFF INHALER INH SCH ×2 (05:11→18:45)
[2021-06-27 05:16] LABS: #Eosinphils 0.1 thou/uL (0.0-0.7); #Lymphocytes 0.8 thou/uL (1.20-3.40); #Monocytes 1.1 thou/uL (0.11-0.59); #Neutrophils 7.4 thou/uL (1.40-6.50); %Basophils 0.1 % (0.0-1.0); %Eosinophils 0.6 % (0.0-10.0); %Lymphocytes 8.7 % (21.0-51.0); %Monocytes 11.5 % (0.0-10.0); %Neutrophils 79.1 % (42.0-75.0); Hemoglobin 8.7 g/dL (12.0-16.0); Mean Corpuscular Hemoglobin 33.8 pg (27.0-31.0); Mean Platelet Volume 8.3 fL (7.4-10.4); Platelet Count 273 thou/uL (130-400); RBC Distribution Width 14.2 % (11.5-14.5); Red Blood Cell (RBC) Count 2.58 mill/uL (4.20-5.40); White Blood Cell (WBC) Count 9.3 thou/uL (4.8-10.8)
[2021-06-27 05:27] LABS: INR-International Normal Ratio 1.2; Prothrombin Time 15.6 sec (12.0-14.7)
[2021-06-27 05:35] LABS: ALT (SGPT) 32 U/L (8-55); ALT (SGPT) 34 U/L (8-55); AST (SGOT) 22 U/L (5-34); Albumin 2.6 g/dL (3.4-4.8); Alkaline Phosphatase 52 U/L (40-110); Alkaline Phosphatase 53 U/L (40-110); Anion Gap 5 mmol/L (10-20); BUN (Urea Nitrogen) 15 mg/dL (9.8-20.1); Bilirubin, Direct 0.3 mg/dL (0.1-0.3); Bilirubin, Total 0.4 mg/dL (0.2-1.2); Calc. Creatinine Clearance 60 mL/min (70-130); Calcium 7.8 mg/dL (7.8-10.44); Carbon Dioxide 28 mmol/L (23-31); Chloride 112 mmol/L (98-107); Globulin 2.3 g/dL (2.4-3.5); Glucose 97 mg/dL (83-110); Potassium 4.3 mmol/L (3.5-5.1); Protein, Total 4.9 g/dL (5.8-8.1); Sodium 141 mmol/L (136-145)
[2021-06-27] MEDS: Levothyroxine Sodium 88 MCG TAB PO SCH (06:07)
[2021-06-27] MEDS: Enoxaparin Sodium 40 MG/0.4 ML SYRINGE SC SCH (10:01)
[2021-06-27] MEDS: Dexamethasone 4 mg/ml Vial SLOW IVP SCH (10:01)
[2021-06-27] MEDS: REMDESIVIR 100 MG in Sodium Chloride 0.9% 250 ML 230 ML IV SCH (10:02)
[2021-06-27] MEDS: Pantoprazole 40 MG VIAL IVP SCH (10:02)
[2021-06-27] MEDS: Zinc Sulfate 220 MG CAP PO SCH (10:02)
[2021-06-27] MEDS: Ascorbic Acid 500 mg Chewable Tablet PO SCH (10:02)
[2021-06-27 10:54] LABS: Syphilis Antibody Nonreactive (Nonreactive); Syphilis Antibody Index 0.12 S/CO (<1.00 Non-Reactive)
[2021-06-27] MEDS: Azithromycin 500 MG in Sodium Chloride 0.9% 250 ML 250 ML IVPB SCH (16:12)
[2021-06-27] MEDS: cefTRIAXone\\ROCEPHIN 1 GM in Sodium Chloride 0.9% 100 ML IVPB SCH (20:24)
[2021-06-28] MEDS: Mometasone 200 MCG/Formoterol 5 MCG 120 PUFF INHALER INH SCH ×2 (05:57→18:47)
[2021-06-28] MEDS: Levothyroxine Sodium 88 MCG TAB PO SCH (05:57)
[2021-06-28 06:52] LABS: #Eosinphils 0.1 thou/uL (0.0-0.7); #Lymphocytes 0.7 thou/uL (1.20-3.40); #Monocytes 0.9 thou/uL (0.11-0.59); #Neutrophils 5.1 thou/uL (1.40-6.50); %Basophils 0.1 % (0.0-1.0); %Eosinophils 1.1 % (0.0-10.0); %Lymphocytes 10.4 % (21.0-51.0); %Monocytes 12.9 % (0.0-10.0); %Neutrophils 75.5 % (42.0-75.0); Hemoglobin 8.7 g/dL (12.0-16.0); Mean Corpuscular HGB CONC 32.5 g/dL (32.0-36.0); Mean Corpuscular Hemoglobin 33.3 pg (27.0-31.0); Mean Platelet Volume 8.7 fL (7.4-10.4); Platelet Count 237 thou/uL (130-400); Red Blood Cell (RBC) Count 2.61 mill/uL (4.20-5.40); White Blood Cell (WBC) Count 6.8 thou/uL (4.8-10.8)
[2021-06-28 07:02] LABS: INR-International Normal Ratio 1.2; Prothrombin Time 15.6 sec (12.0-14.7)
[2021-06-28 07:16] LABS: ALT (SGPT) 26 U/L (8-55); ALT (SGPT) 27 U/L (8-55); AST (SGOT) 21 U/L (5-34); Albumin 2.5 g/dL (3.4-4.8); Alkaline Phosphatase 57 U/L (40-110); Alkaline Phosphatase 58 U/L (40-110); Anion Gap 11 mmol/L (10-20); BUN (Urea Nitrogen) 15 mg/dL (9.8-20.1); Bilirubin, Direct 0.3 mg/dL (0.1-0.3); Bilirubin, Total 0.4 mg/dL (0.2-1.2); Calc. Creatinine Clearance 60 mL/min (70-130); Calcium 7.8 mg/dL (7.8-10.44); Carbon Dioxide 22 mmol/L (23-31); Chloride 109 mmol/L (98-107); Globulin 2.3 g/dL (2.4-3.5); Glucose 113 mg/dL (83-110); Potassium 3.9 mmol/L (3.5-5.1); Protein, Total 4.7 g/dL (5.8-8.1); Protein, Total 4.8 g/dL (5.8-8.1); Sodium 138 mmol/L (136-145)
[2021-06-28 07:34] LABS: HIV (1/2) Antibody/Antigen Non-Reactive (NonReactive); HIV 1/2 INDEX 0.17 S/CO (<1.00)
[2021-06-28] MEDS: REMDESIVIR 100 MG in Sodium Chloride 0.9% 250 ML 230 ML IV SCH (10:42)
[2021-06-28] MEDS: Folic Acid 1 MG TAB PO SCH (10:43)
[2021-06-28] MEDS: Pantoprazole 40 MG VIAL IVP SCH (10:43)
[2021-06-28] MEDS: Ascorbic Acid 500 mg Chewable Tablet PO SCH (10:43)
[2021-06-28] MEDS: Zinc Sulfate 220 MG CAP PO SCH (10:43)
[2021-06-28] MEDS: Dexamethasone 4 mg/ml Vial SLOW IVP SCH (10:43)
[2021-06-28] MEDS: Enoxaparin Sodium 40 MG/0.4 ML SYRINGE SC SCH (10:43)
[2021-06-28] MEDS: Azithromycin 500 MG in Sodium Chloride 0.9% 250 ML 250 ML IVPB SCH (16:24)
[2021-06-28] MEDS: Lactated Ringer's 1,000 ML IV SCH (16:40)
[2021-06-28] MEDS: cefTRIAXone\\ROCEPHIN 1 GM in Sodium Chloride 0.9% 100 ML IVPB SCH (22:32)
[2021-06-29 05:09] LABS: #Eosinphils 0.1 thou/uL (0.0-0.7); #Lymphocytes 0.7 thou/uL (1.20-3.40); #Monocytes 1.2 thou/uL (0.11-0.59); #Neutrophils 6.3 thou/uL (1.40-6.50); %Basophils 0.1 % (0.0-1.0); %Eosinophils 0.8 % (0.0-10.0); %Lymphocytes 8.4 % (21.0-51.0); %Monocytes 14.7 % (0.0-10.0); %Neutrophils 76.1 % (42.0-75.0); Hemoglobin 8.6 g/dL (12.0-16.0); Mean Corpuscular Hemoglobin 33.4 pg (27.0-31.0); Mean Platelet Volume 8.8 fL (7.4-10.4); Platelet Count 268 thou/uL (130-400); RBC Distribution Width 13.8 % (11.5-14.5); Red Blood Cell (RBC) Count 2.58 mill/uL (4.20-5.40); White Blood Cell (WBC) Count 8.2 thou/uL (4.8-10.8)
[2021-06-29 05:19] LABS: INR-International Normal Ratio 1.2; Prothrombin Time 15.4 sec (12.0-14.7)
[2021-06-29 05:22] LABS: ALT (SGPT) 29 U/L (8-55); AST (SGOT) 26 U/L (5-34); Albumin 2.6 g/dL (3.4-4.8); Alkaline Phosphatase 57 U/L (40-110); Anion Gap 8 mmol/L (10-20); BUN (Urea Nitrogen) 14 mg/dL (9.8-20.1); Bilirubin, Direct 0.3 mg/dL (0.1-0.3); Bilirubin, Total 0.5 mg/dL (0.2-1.2); Calc. Creatinine Clearance 61 mL/min (70-130); Calcium 7.9 mg/dL (7.8-10.44); Carbon Dioxide 25 mmol/L (23-31); Chloride 109 mmol/L (98-107); Globulin 2.3 g/dL (2.4-3.5); Glucose 108 mg/dL (83-110); Potassium 3.9 mmol/L (3.5-5.1); Protein, Total 4.9 g/dL (5.8-8.1); Sodium 138 mmol/L (136-145)
[2021-06-29 06:16] LABS: Magnesium 2.3 mg/dL (1.6-2.6)
[2021-06-29] MEDS: Mometasone 200 MCG/Formoterol 5 MCG 120 PUFF INHALER INH SCH ×2 (06:42→18:16)
[2021-06-29] MEDS: Levothyroxine Sodium 88 MCG TAB PO SCH (06:42)
[2021-06-29] MEDS: Lactated Ringer's 1,000 ML IV SCH (09:45)
[2021-06-29] MEDS: Folic Acid 1 MG TAB PO SCH (09:46)
[2021-06-29] MEDS: Zinc Sulfate 220 MG CAP PO SCH (09:46)
[2021-06-29] MEDS: Dexamethasone 4 mg/ml Vial SLOW IVP SCH (09:46)
[2021-06-29] MEDS: Pantoprazole 40 MG VIAL IVP SCH (09:46)
[2021-06-29] MEDS: Ascorbic Acid 500 mg Chewable Tablet PO SCH (09:46)
[2021-06-29] MEDS: Enoxaparin Sodium 40 MG/0.4 ML SYRINGE SC SCH (09:48)
[2021-06-29] MEDS: REMDESIVIR 100 MG in Sodium Chloride 0.9% 250 ML 230 ML IV SCH (09:50)
[2021-06-29] MEDS: Azithromycin 500 MG in Sodium Chloride 0.9% 250 ML 250 ML IVPB SCH (15:57)
[2021-06-29] MEDS: cefTRIAXone\\ROCEPHIN 1 GM in Sodium Chloride 0.9% 100 ML IVPB SCH (21:55)
[2021-06-30 05:39] LABS: Hemoglobin 8.5 g/dL (12.0-16.0); Mean Corpuscular HGB CONC 33.1 g/dL (32.0-36.0); Mean Corpuscular Hemoglobin 33.5 pg (27.0-31.0); Mean Platelet Volume 9.2 fL (7.4-10.4); Platelet Count 232 thou/uL (130-400); RBC Distribution Width 14.1 % (11.5-14.5); Red Blood Cell (RBC) Count 2.54 mill/uL (4.20-5.40); White Blood Cell (WBC) Count 8.7 thou/uL (4.8-10.8)
[2021-06-30 05:40] LABS: Band 4 % (5-11); Hypochromia SLIGHT = 6-15 cells (100X) (0-5/hpf); Lymphocytes 6 % (21-51); MDiff Complete? YES; Macrocytosis SLIGHT = 6-15 cells (100X) (0-5/hpf); Monocytes 19 % (0-10); Neutrophil 71 % (42-75); Platelet Morphology Comment Appears Adequate
[2021-06-30 05:46] LABS: ALT (SGPT) 27 U/L (8-55); AST (SGOT) 21 U/L (5-34); Albumin 2.2 g/dL (3.4-4.8); Alkaline Phosphatase 56 U/L (40-110); Anion Gap 12 mmol/L (10-20); BUN (Urea Nitrogen) 12 mg/dL (9.8-20.1); Bilirubin, Total 0.4 mg/dL (0.2-1.2); Calc. Creatinine Clearance 62 mL/min (70-130); Calcium 7.7 mg/dL (7.8-10.44); Carbon Dioxide 19 mmol/L (23-31); Chloride 110 mmol/L (98-107); Globulin 2.3 g/dL (2.4-3.5); Glucose 123 mg/dL (83-110); Potassium 3.6 mmol/L (3.5-5.1); Protein, Total 4.5 g/dL (5.8-8.1); Sodium 137 mmol/L (136-145)
[2021-06-30] MEDS: Levothyroxine Sodium 88 MCG TAB PO SCH (06:11)
[2021-06-30] MEDS: Mometasone 200 MCG/Formoterol 5 MCG 120 PUFF INHALER INH SCH ×2 (07:07→18:57)
[2021-06-30] MEDS: Ascorbic Acid 500 mg Chewable Tablet PO SCH (09:16)
[2021-06-30] MEDS: Dexamethasone 4 mg/ml Vial SLOW IVP SCH (09:16)
[2021-06-30] MEDS: Folic Acid 1 MG TAB PO SCH (09:16)
[2021-06-30] MEDS: Pantoprazole 40 MG VIAL IVP SCH (09:16)
[2021-06-30] MEDS: Enoxaparin Sodium 40 MG/0.4 ML SYRINGE SC SCH (09:16)
[2021-06-30] MEDS: Zinc Sulfate 220 MG CAP PO SCH (09:17)
[2021-06-30] MEDS: Azithromycin 500 MG in Sodium Chloride 0.9% 250 ML 250 ML IVPB SCH (14:14)
[2021-06-30] MEDS: cefTRIAXone\\ROCEPHIN 1 GM in Sodium Chloride 0.9% 100 ML IVPB SCH (21:38)
[2021-07-01 04:59] LABS: Phosphorus 3.6 mg/dL (2.3-4.7)
[2021-07-01 05:01] LABS: ALT (SGPT) 30 U/L (8-55); AST (SGOT) 25 U/L (5-34); Albumin 2.6 g/dL (3.4-4.8); Alkaline Phosphatase 63 U/L (40-110); Anion Gap 10 mmol/L (10-20); BUN (Urea Nitrogen) 15 mg/dL (9.8-20.1); Bilirubin, Total 0.6 mg/dL (0.2-1.2); Calc. Creatinine Clearance 60 mL/min (70-130); Carbon Dioxide 20 mmol/L (23-31); Chloride 109 mmol/L (98-107); Globulin 2.5 g/dL (2.4-3.5); Glucose 110 mg/dL (83-110); Magnesium 2.3 mg/dL (1.6-2.6); Potassium 3.7 mmol/L (3.5-5.1); Protein, Total 5.1 g/dL (5.8-8.1); Sodium 135 mmol/L (136-145)
[2021-07-01] MEDS: Mometasone 200 MCG/Formoterol 5 MCG 120 PUFF INHALER INH SCH ×2 (06:18→18:40)
[2021-07-01] MEDS: Levothyroxine Sodium 88 MCG TAB PO SCH (06:18)
[2021-07-01] MEDS: Ascorbic Acid 500 mg Chewable Tablet PO SCH (09:41)
[2021-07-01] MEDS: Enoxaparin Sodium 40 MG/0.4 ML SYRINGE SC SCH (09:42)
[2021-07-01] MEDS: Zinc Sulfate 220 MG CAP PO SCH (09:42)
[2021-07-01] MEDS: Dexamethasone 4 mg/ml Vial SLOW IVP SCH (09:42)
[2021-07-01] MEDS: Pantoprazole 40 MG VIAL IVP SCH (09:42)
[2021-07-01] MEDS: Folic Acid 1 MG TAB PO SCH (09:42)
[2021-07-01 12:44] LABS: #Lymphocytes 0.5 thou/uL (1.20-3.40); #Monocytes 0.6 thou/uL (0.11-0.59); #Neutrophils 10.5 thou/uL (1.40-6.50); %Basophils 0.2 % (0.0-1.0); %Eosinophils 0.4 % (0.0-10.0); %Lymphocytes 4.1 % (21.0-51.0); %Monocytes 5.5 % (0.0-10.0); %Neutrophils 89.9 % (42.0-75.0); Hemoglobin 9.6 g/dL (12.0-16.0); Mean Corpuscular HGB CONC 32.9 g/dL (32.0-36.0); Mean Corpuscular Hemoglobin 33.6 pg (27.0-31.0); Mean Platelet Volume 8.7 fL (7.4-10.4); Platelet Count 274 thou/uL (130-400); Red Blood Cell (RBC) Count 2.87 mill/uL (4.20-5.40); White Blood Cell (WBC) Count 11.7 thou/uL (4.8-10.8)
[2021-07-02] MEDS: Levothyroxine Sodium 88 MCG TAB PO SCH (05:04)
[2021-07-02] MEDS: Mometasone 200 MCG/Formoterol 5 MCG 120 PUFF INHALER INH SCH ×2 (05:08→19:22)
[2021-07-02 05:24] LABS: #Eosinphils 0.1 thou/uL (0.0-0.7); #Lymphocytes 0.7 thou/uL (1.20-3.40); #Monocytes 1.2 thou/uL (0.11-0.59); #Neutrophils 7.6 thou/uL (1.40-6.50); %Basophils 0.1 % (0.0-1.0); %Eosinophils 0.7 % (0.0-10.0); %Lymphocytes 7.4 % (21.0-51.0); %Monocytes 12.4 % (0.0-10.0); %Neutrophils 79.4 % (42.0-75.0); Mean Corpuscular HGB CONC 31.3 g/dL (32.0-36.0); Mean Corpuscular Hemoglobin 31.7 pg (27.0-31.0); Mean Platelet Volume 8.8 fL (7.4-10.4); Platelet Count 288 thou/uL (130-400); RBC Distribution Width 14.2 % (11.5-14.5); Red Blood Cell (RBC) Count 2.83 mill/uL (4.20-5.40); White Blood Cell (WBC) Count 9.5 thou/uL (4.8-10.8)
[2021-07-02 05:42] LABS: ALT (SGPT) 30 U/L (8-55); AST (SGOT) 24 U/L (5-34); Albumin 2.7 g/dL (3.4-4.8); Alkaline Phosphatase 64 U/L (40-110); Anion Gap 8 mmol/L (10-20); BUN (Urea Nitrogen) 13 mg/dL (9.8-20.1); Bilirubin, Total 0.7 mg/dL (0.2-1.2); Calc. Creatinine Clearance 62 mL/min (70-130); Calcium 7.9 mg/dL (7.8-10.44); Carbon Dioxide 24 mmol/L (23-31); Chloride 107 mmol/L (98-107); Globulin 2.5 g/dL (2.4-3.5); Glucose 115 mg/dL (83-110); Potassium 3.7 mmol/L (3.5-5.1); Protein, Total 5.2 g/dL (5.8-8.1); Sodium 135 mmol/L (136-145)
[2021-07-02 05:51] LABS: Bacteria/HPF None Seen HPF (None Seen); Bilirubin Negative (Negative); Blood, Urine 2+ (Negative); Clarity Turbid (Clear); Glucose, Urine (Dipstick) Normal (Negative); Ketone, Urine Negative (Negative); Leukocyte 25 Leu/uL (Negative); Nitrite Negative (Negative); Protein, Urine (Dipstick) 10 mg/dL (Neg-Trace); RBC/HPF Greater than 50 HPF (0-3); Specific Gravity, Urine 1.019 (1.002-1.036); Squamous Epithelial None Seen HPF (0-3); Urobilinogen Normal mg/dL (Less than 2)
[2021-07-02] MEDS: Dexamethasone 4 mg/ml Vial SLOW IVP SCH (10:35)
[2021-07-02] MEDS: Ascorbic Acid 500 mg Chewable Tablet PO SCH (10:35)
[2021-07-02] MEDS: Pantoprazole 40 MG VIAL IVP SCH (10:36)
[2021-07-02] MEDS: Enoxaparin Sodium 40 MG/0.4 ML SYRINGE SC SCH (10:36)
[2021-07-02] MEDS: Folic Acid 1 MG TAB PO SCH (10:36)
[2021-07-02] MEDS: Zinc Sulfate 220 MG CAP PO SCH (10:36)
[2021-07-03 04:53] LABS: #Lymphocytes 0.8 thou/uL (1.20-3.40); #Monocytes 1.3 thou/uL (0.11-0.59); %Basophils 0.3 % (0.0-1.0); %Eosinophils 0.3 % (0.0-10.0); %Lymphocytes 6.9 % (21.0-51.0); %Monocytes 11.9 % (0.0-10.0); %Neutrophils 80.7 % (42.0-75.0); Mean Corpuscular HGB CONC 32.4 g/dL (32.0-36.0); Mean Corpuscular Hemoglobin 32.7 pg (27.0-31.0); Mean Platelet Volume 8.6 fL (7.4-10.4); Platelet Count 273 thou/uL (130-400); RBC Distribution Width 14.1 % (11.5-14.5); Red Blood Cell (RBC) Count 2.76 mill/uL (4.20-5.40); White Blood Cell (WBC) Count 11.1 thou/uL (4.8-10.8)
[2021-07-03 05:16] LABS: ALT (SGPT) 31 U/L (8-55); AST (SGOT) 23 U/L (5-34); Albumin 2.8 g/dL (3.4-4.8); Alkaline Phosphatase 66 U/L (40-110); Anion Gap 10 mmol/L (10-20); BUN (Urea Nitrogen) 10 mg/dL (9.8-20.1); Bilirubin, Total 0.8 mg/dL (0.2-1.2); Calc. Creatinine Clearance 70 mL/min (70-130); Carbon Dioxide 21 mmol/L (23-31); Chloride 108 mmol/L (98-107); Globulin 2.4 g/dL (2.4-3.5); Glucose 112 mg/dL (83-110); Potassium 3.5 mmol/L (3.5-5.1); Protein, Total 5.2 g/dL (5.8-8.1); Sodium 135 mmol/L (136-145)
[2021-07-03] MEDS: Mometasone 200 MCG/Formoterol 5 MCG 120 PUFF INHALER INH SCH ×2 (05:27→18:15)
[2021-07-03] MEDS: Levothyroxine Sodium 88 MCG TAB PO SCH (05:27)
[2021-07-03] MEDS ORDERED: Potassium Chloride 20 MEQ TAB PO SCH ×2 (07:00→09:00)
[2021-07-03] MEDS: Enoxaparin Sodium 40 MG/0.4 ML SYRINGE SC SCH (08:34)
[2021-07-03] MEDS: Folic Acid 1 MG TAB PO SCH (08:35)
[2021-07-03] MEDS: Pantoprazole 40 MG VIAL IVP SCH (08:35)
[2021-07-03] MEDS: Ascorbic Acid 500 mg Chewable Tablet PO SCH (08:35)
[2021-07-03] MEDS: Zinc Sulfate 220 MG CAP PO SCH (08:35)
[2021-07-04 04:35] LABS: #Basophils 0.1 thou/uL (0.0-0.2); #Eosinphils 0.1 thou/uL (0.0-0.7); #Monocytes 1.2 thou/uL (0.11-0.59); #Neutrophils 10.6 thou/uL (1.40-6.50); %Basophils 0.4 % (0.0-1.0); %Lymphocytes 7.6 % (21.0-51.0); %Monocytes 9.4 % (0.0-10.0); %Neutrophils 81.5 % (42.0-75.0); Hemoglobin 9.8 g/dL (12.0-16.0); Mean Corpuscular Hemoglobin 32.6 pg (27.0-31.0); Mean Platelet Volume 8.3 fL (7.4-10.4); Platelet Count 264 thou/uL (130-400); RBC Distribution Width 14.5 % (11.5-14.5); Red Blood Cell (RBC) Count 3.01 mill/uL (4.20-5.40)
[2021-07-04 05:02] LABS: ALT (SGPT) 26 U/L (8-55); AST (SGOT) 20 U/L (5-34); Albumin 2.9 g/dL (3.4-4.8); Alkaline Phosphatase 70 U/L (40-110); Anion Gap 12 mmol/L (10-20); BUN (Urea Nitrogen) 10 mg/dL (9.8-20.1); Bilirubin, Total 1.1 mg/dL (0.2-1.2); Calc. Creatinine Clearance 68 mL/min (70-130); Calcium 8.1 mg/dL (7.8-10.44); Carbon Dioxide 21 mmol/L (23-31); Chloride 105 mmol/L (98-107); Globulin 2.7 g/dL (2.4-3.5); Glucose 90 mg/dL (83-110); Potassium 4.1 mmol/L (3.5-5.1); Protein, Total 5.6 g/dL (5.8-8.1); Sodium 134 mmol/L (136-145)
[2021-07-04] MEDS: Levothyroxine Sodium 88 MCG TAB PO SCH (05:43)
[2021-07-04] MEDS: Mometasone 200 MCG/Formoterol 5 MCG 120 PUFF INHALER INH SCH ×2 (07:52→19:00)
[2021-07-04] MEDS: Zinc Sulfate 220 MG CAP PO SCH (08:51)
[2021-07-04] MEDS: Folic Acid 1 MG TAB PO SCH (08:52)
[2021-07-04] MEDS: Enoxaparin Sodium 40 MG/0.4 ML SYRINGE SC SCH (08:52)
[2021-07-04] MEDS: Ascorbic Acid 500 mg Chewable Tablet PO SCH (08:52)
[2021-07-04] MEDS: Pantoprazole 40 MG VIAL IVP SCH (09:00)
[2021-07-05] MEDS: Levothyroxine Sodium 88 MCG TAB PO SCH (05:26)
[2021-07-05] MEDS: Mometasone 200 MCG/Formoterol 5 MCG 120 PUFF INHALER INH SCH ×2 (08:09→19:00)
[2021-07-05] MEDS: Folic Acid 1 MG TAB PO SCH (09:14)
[2021-07-05] MEDS: Enoxaparin Sodium 40 MG/0.4 ML SYRINGE SC SCH (09:14)
[2021-07-05] MEDS: Ascorbic Acid 500 mg Chewable Tablet PO SCH (09:15)
[2021-07-05] MEDS: Zinc Sulfate 220 MG CAP PO SCH (09:15)
[2021-07-05] MEDS: Pantoprazole 40 MG VIAL IVP SCH (09:15)
[2021-07-06] MEDS: Levothyroxine Sodium 88 MCG TAB PO SCH (05:15)
[2021-07-06] MEDS: Nystatin Powder 15 GM BOT TOP PRN ×2 (05:18→09:59)
[2021-07-06] MEDS: Mometasone 200 MCG/Formoterol 5 MCG 120 PUFF INHALER INH SCH ×2 (07:30→19:00)
[2021-07-06] MEDS: Enoxaparin Sodium 40 MG/0.4 ML SYRINGE SC SCH (09:58)
[2021-07-06] MEDS: Pantoprazole 40 MG VIAL IVP SCH (09:58)
[2021-07-06] MEDS: Ascorbic Acid 500 mg Chewable Tablet PO SCH (09:59)
[2021-07-06] MEDS: Folic Acid 1 MG TAB PO SCH (09:59)
[2021-07-06] MEDS: Zinc Sulfate 220 MG CAP PO SCH (09:59)
[2021-07-07] MEDS: Levothyroxine Sodium 88 MCG TAB PO SCH (05:43)
[2021-07-07 07:04] VITALS: BMI 20.2
[2021-07-07] MEDS: Mometasone 200 MCG/Formoterol 5 MCG 120 PUFF INHALER INH SCH (07:08)
[2021-07-07] MEDS: Folic Acid 1 MG TAB PO SCH (08:15)
[2021-07-07] MEDS: Zinc Sulfate 220 MG CAP PO SCH (08:15)
[2021-07-07] MEDS: Ascorbic Acid 500 mg Chewable Tablet PO SCH (08:15)
[2021-07-07] MEDS: Pantoprazole 40 MG VIAL IVP SCH (08:16)
[2021-07-07] MEDS: Enoxaparin Sodium 40 MG/0.4 ML SYRINGE SC SCH (08:18)
[2021-07-07 16:04] VITALS: BP 116/58; TEMP 98.3
== END 2021-07-07 18:00 | DRG 871 ==
LOC: ERS 18:24 → 2SW 20:28 → 2NO 07-03 21:20
PROVIDERS: ADMIT Internal Medicine; ATTEND Internal Medicine
PROC: 8E0ZXY6 Isolation (ICD-10-PCS; principal; 2021-06-22)
PROC: 3E03329 Introduction of Other Anti-infective into Peripheral Vein, Percutaneous Approach (ICD-10-PCS; 2021-06-22)
PROC: 0DH67UZ Insertion of Feeding Device into Stomach, Via Natural or Artificial Opening (ICD-10-PCS; 2021-06-26)
PROC: 3E0G76Z Introduction of Nutritional Substance into Upper GI, Via Natural or Artificial Opening (ICD-10-PCS; 2021-06-26)
DX: A41.89 Other specified sepsis (principal); U07.1 COVID-19; G93.41 Metabolic encephalopathy; J12.82 Pneumonia due to coronavirus disease 2019; J96.01 Acute respiratory failure with hypoxia; E87.0 Hyperosmolality and hypernatremia; E87.2 Acidosis; D62 Acute posthemorrhagic anemia; M62.82 Rhabdomyolysis; K92.2 Gastrointestinal hemorrhage, unspecified; E46 Unspecified protein-calorie malnutrition; E87.1 Hypo-osmolality and hyponatremia; E03.9 Hypothyroidism, unspecified; E86.0 Dehydration; D12.2 Benign neoplasm of ascending colon; E87.6 Hypokalemia; R65.20 Severe sepsis without septic shock; E83.51 Hypocalcemia; D50.9 Iron deficiency anemia, unspecified; N63.0 Unspecified lump in unspecified breast; F03.90 Unspecified dementia, unspecified severity, without behavioral disturbance, psychotic disturbance, mood disturbance, and anxiety; R13.10 Dysphagia, unspecified; Z68.20 Body mass index [BMI] 20.0-20.9, adult; Z87.891 Personal history of nicotine dependence; Z79.890 Hormone replacement therapy; Z79.899 Other long term (current) drug therapy
CPT/HCPCS: 36415; 51701; 70450; 71045; 71275; 74018; 74177; 74230; 76770; 80048; 80053; 80069; 80076; 81001; 81003; 81015; 82140; 82248; 82274; 82306; 82436; 82550; 82553; 82607; 82746; 83540; 83550; 83605; 83735; 83935; 84100; 84133; 84145; 84300; 84443; 84484; 85014; 85018; 85025; 85379; 85610; 85730; 86140; 86780; 86850; 86900; 86901; 87040; 87086; 87389; 87449; 87899; 93005; 94760; 96365; 96367; C9113; J0248; J0456; J0696; J1100; J1650; J3475; J3480; J3490; J7030; J7042; J7050; J7070; J7120; Q9967; U0002